=== PATIENT | male | born 1970 | race Caucasian/White ===

== ENCOUNTER 2018-01-30 20:24 | Emergency (ER) | payer BC, SELFPAY ==
[~2018-01-30] VITALS: Ht 172.7 cm; Wt 95.3 kg
[2018-01-30] MEDS ORDERED: NKM (20:34)
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
[2018-01-30] MEDS ORDERED: ROBAXIN-750750 MG PO (21:42)
[2018-01-30] MEDS ORDERED: IBUPROFEN600 MG ORAL (21:42)
[2018-01-30] MEDS ORDERED: Bacitracin Oint UD TOPIC ONE (21:45)
[2018-01-30] MEDS ORDERED: Sodium Chloride 500ML 500 ML IV ONE (22:15)
[2018-01-30 22:39] LABS: BASOPHILS % (AUTO) 0.9 % (0.0-2.0); EOSINOPHILS % (AUTO) 2.2 % (0.0-3.0); HEMATOCRIT 48.6 % (42.0-52.0); HEMOGLOBIN 16.7 G/DL (14.2-18.0); LYMPHOCYTES % (AUTO) 32.2 % (20.0-45.0); MEAN CORPUSCULAR VOLUME 88 FL (80-99); MONOCYTES % (AUTO) 6.2 % (1.0-10.0); NEUTROPHILS % (AUTO) 58.5 % (45.0-75.0); PLATELET COUNT 197 K/UL (150-450); RED BLOOD COUNT 5.51 M/UL (4.70-6.10); RED CELL DISTRIBUTION WIDTH 11.5 % (11.6-14.8); WHITE BLOOD COUNT 8.9 K/UL (4.8-10.8)
[2018-01-30 22:40] LABS: ANION GAP 5 mmol/L (5-15); BLOOD UREA NITROGEN 12 mg/dL (7-18); CALCIUM 8.9 MG/DL (8.5-10.1); CARBON DIOXIDE 29 MMOL/L (21-32); CHLORIDE 104 MMOL/L (98-107); CREATININE 1.3 MG/DL (0.55-1.30); POTASSIUM 3.7 MMOL/L (3.5-5.1); SODIUM 138 MMOL/L (136-145)
[2018-01-30 23:03] VITALS: BP 124/61
[2018-01-30 23:28] VITALS: BP 124/61
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
--- NOTE | 2018-01-31 12:20 | Diagnostic Imaging Report ---
Indications: Left facial region pain Technique: Spiral images obtained through the facial bones. No IV contrast utilized. Multiplanar reconstructions were generated.Total dose length product 676.1 mGycm. CTDIvol(s) 28.19 mGy. Dose reduction achieved using automated exposure control Comparison: none Findings: No evidence of acute fracture. There is a polyp or mucous retention cyst in the left maxillary sinus. There is ethmoid sinus mucosal thickening. The optic globes are intact. There is minimal left periorbital and bilateral supraorbital soft tissue contusion there is some streak artifact from dental amalgam. The dentition otherwise appears intact. Impression: No acute bony trauma Sinus disease This agrees with the preliminary interpretation provided overnight by [facility] service. The CT scanner at [facility] is accredited by the [employer] and the scans are performed using protocols designed to limit radiation exposure to as low as reasonably achievable to attain images of sufficient resolution adequate for diagnostic evaluation.
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
--- NOTE | 2018-01-31 13:56 | Emergency Room Report ---
History of Present Illness General Chief Complaint: Multiple Trauma/Fall Source: Patient Present Illness HPI I called this patient at 1:45 PM on 01/31/2018, as the radiologist Dr. Cordova called me reporting that patient had a lung nodule on his right lung field and that if he was a smoker he would need a follow-up CT in 6-12 months, otherwise could be ignored. I left a message on the patient's phone to call the emergency department back to inquire about his CT scan. I try the patient's next of kin number, but that gave me a facsimile ringtone, so that is unlikely a valid number. Allergies: Coded Allergies: No Known Allergies (Unverified , 01/30/18) Nursing Documentation-[facility] Past Medical History: No Stated History Physical Exam Vital Signs Date Time Temp Pulse Resp B/P (MAP) Pulse Ox O2 Delivery O2 Flow Rate FiO2 01/30/18 20:29 98.4 65 18 121/83 98 Room Air 98.4 Medical Decision Making Diagnostic Impression: Primary Impression: Hemorrhage Last Vital Signs Date Time Temp Pulse Resp B/P (MAP) Pulse Ox O2 Delivery O2 Flow Rate FiO2 01/30/18 23:28 98.2 87 18 124/61 100 Room Air 98.2 Disposition: SHORT-TERM HOSP Condition: Serious Referrals: ANATOLY RAE (PCP) Patient Instructions: Contusion, [id number], Chest Wall Pain, [id number], Abrasion, [id number] CLAUDIA AL M.D Jan 31, 2018 13:56
== END 2018-01-30 23:30 | disposition short-term general hospital (02) ==
LOC: EMR 20:46
DX: R58 Hemorrhage, not elsewhere classified (principal); S00.81XA Abrasion of other part of head, initial encounter; S00.212A Abrasion of left eyelid and periocular area, initial encounter; S09.8XXA Other specified injuries of head, initial encounter; W05.1XXA Fall from non-moving nonmotorized scooter, initial encounter; Y92.89 Other specified places as the place of occurrence of the external cause; R91.1 Solitary pulmonary nodule
CPT/HCPCS: 36415; 70450; 70486; 71250; 80048; 85025; 85610; 85730; 96374; 99284; J2405; J7040; 96360